=== PATIENT | female | born 2000 | race Caucasian/White ===

== ENCOUNTER 2022-09-02 10:31 | Emergency (ER) | payer BC, SELFPAY ==
--- NOTE | ~2022-09-02 | US_ITS ---
EXAMINATION: US pelvic complete DATE: 09/02/2022 15:24 INDICATION: RLQ pain, r/o ovarian torsion/cyst TECHNIQUE: Multiple transabdominal sonographic images of the pelvis were obtained. Patient declined t ransvaginal examination. COMPARISON: CT abdomen pelvis, same date FINDINGS: Uterus: 6.4 x 2.5 x 5.1 cm. IUD, in good position. Endometrial complex measures 3 mm. Right Ovary: 2.8 x 2.4 x 2.0 cm. Vascular flow is present. Left Ovary: 3.2 x 2.2 x 2.0 cm. Vascular flow is present. There is no free fluid in the pelvis. IMPRESSION: IUD, in good position. Otherwise normal pelvic sonogram findings. Reviewed, dictated and finalized at location K. N SECRETARY
--- NOTE | ~2022-09-02 | CT_ITS ---
EXAMINATION: CT abdomen pelvis w con DATE: 09/02/2022 14:19 INDICATION: Right lower quadrant pain TECHNIQUE: Computed tomography (CT) of the abdomen and pelvis was performed with 99 cc Omnipaque 350 intravenous contrast. The dose-length product was 200.99 mGy-cm. Automated exposure control and itera tive reconstruction technique were employed. COMPARISON: None. FINDINGS: Lung bases are unremarkable. Heart size normal. There are breast implants. No significant p leural or pericardial effusion. No significant vascular abnormality. No lymphadenopathy. There is an IUD in the uterus. Small amount of free fluid in the pelvis. Nonobstructive bowel gas pattern. No lymphadenopathy. The liver, spleen, pancreas, adrenal glands and kidneys are unremarkable. Gallbladder is present. The re is abnormal mural thickening of the transverse and proximal descending colon, consistent with coli tis. No evidence for perforation. No free air. No acute osseous abnormality. IMPRESSION: 1. Abnormal mural thickening of the transverse and proximal descending colon, compatible with colitis . Reviewed, dictated and finalized at location A. ICAL THERAPIST AIDE IMPRESSION: 1. Abnormal mural thickening of the transverse and proximal descending colon, c ompatible with colitis.
[2022-09-02 10:47] VITALS: BP 122/89; PULSE 101; RESP 18; TEMP 36.7; O2SAT 100
--- NOTE | 2022-09-02 10:57 | PC.NURSE ---
PT UNABLE TO PROVIDE URINE SAMPLE AT THIS TIME
[2022-09-02 11:05] LABS: Basophils Absolute Auto 0.1 K/mm3 (0.0-0.1); Basophils Percent Auto 1.4 % (0.2-1.2); Eosinophils Absolute Auto 0.1 K/mm3 (0-0.3); Eosinophils Percent Auto 1.6 % (0-4.4); Hematocrit 43.8 % (37.0-47.0); Hemoglobin 14.5 g/dL (12.0-15.0); Immature Granulocyte Absolute 0.01 K/mm3 (0.00-0.031); Immature Granulocyte Percent A 0.2 % (0-0.5); Lymphocytes Absolute Auto 2.05 K/mm3 (0.9-3.2); Lymphocytes Percent Auto 39.7 % (18.3-44.2); Mean Corpuscular HGB Conc 33.1 g/dl (32-36); Mean Corpuscular Hemoglobin 29.8 pg (26-34); Mean Corpuscular Volume 90.1 fl (80-100); Mean Platelet Volume 8.8 fl (7.4-10.4); Monocytes Absolute Auto 0.5 K/mm3 (0.1-0.6); Monocytes Percent Auto 8.9 % (2.6-8.5); Neutrophils Absolute Auto 2.5 K/mm3 (1.3-6.7); Neutrophils Percent Auto 48.2 % (45.5-73.1); Platelet Count Result 394 k/mm3 (150-375); Red Blood Count 4.86 M/mm3 (4.2-5.4); Red Cell Distribution Width 13.6 % (11.5-14.5); White Blood Count 5.2 K/mm3 (4.5-10.0)
[2022-09-02 11:18] LABS: Alanine Aminotransferase 22 U/L (6-35); Albumin Level 5.1 g/dL (3.5-5.1); Alkaline Phosphatase 67 U/L (38-126); Anion Gap 10 mmol/L (8-16); Aspartate Amino Transferase 26 U/L (14-36); Bilirubin,Total 0.5 mg/dL (0.2-1.3); Blood Urea Nitrogen 12 mg/dL (7-17); Calcium 8.8 mg/dL (8.4-10.2); Carbon Dioxide 25 mmol/L (22-30); Chloride 104 mmol/L (98-107); Estimated CRCL calculation 68 ml/min; Estimated Glomerular Filt Rate > 60; Glucose 104 mg/dL (65-110); Lipase 45 U/L (23-300); Potassium 3.8 mmol/L (3.4-5.0); Sodium 139 mmol/L (137-145)
--- NOTE | 2022-09-02 11:18 | ED.ABDPAIN ---
HPI - Abdominal Pain General Chief Complaint: Abdominal Pain Stated Complaint: Lower ABD Pain, Diarrhea Time Seen by Provider: 09/02/22 10:43 Source: patient Mode of arrival: ambulatory Limitations: no limitations History of Present Illness HPI narrative: Patient is a 22 y/o female who presents to the ED with c/o right lower quadrant abdominal pain. Patient reports the pain began this morning. It is focal in her right lower quadrant, worse with movement. She has not tried anything for the pain. She also reports having nausea, diarrhea, and a decreased appetite over the last few days. She denies any fever, chills, vomiting, rectal bleeding, melena, urinary symptoms, cough or cold symptoms. Related Data Home Medications Medication Instructions Recorded Confirmed desvenlafaxine succinate 50 mg 50 mg PO DAILY 09/02/22 tablet,extended release 24 hr (Pristiq) dextroamphetamine-amphetamine ER 20 mg PO DAILY 09/02/22 20 mg 24hr capsule,extend release (Adderall XR) lamotrigine 200 mg tablet 200 mg PO DAILY 09/02/22 (Lamictal) quetiapine 50 mg tablet (Seroquel) 50 mg PO HS 09/02/22 Allergies Allergy/AdvReac Type Severity Reaction Status Date / Time No Known Allergies Allergy Verified 09/02/22 10:55 Review of Systems Review of Systems: CONSTITUTIONAL: Denies fever, chills, or sweats. ENT: Denies rhinorrhea, congestion, sore throat. CARDIOVASCULAR: Denies chest pain. RESPIRATORY: Denies dyspnea. GASTROINTESTINAL: See HPI. GENITOURINARY: Denies dysuria or hematuria. All systems reviewed & are unremarkable except as noted in HPI and below [facility] Past Medical History Medical History (Updated 09/02/22 @ 15:54 by Norma Beltran PA-C) Bipolar disorder Surgical History Surgical History (Updated 09/02/22 @ 14:48 by Norma Beltran PA-C) No pertinent past surgical history Social History Social History (Updated 09/02/22 @ 14:48 by Norma Beltran PA-C) Smoking status: Current every day smoker Exam Narrative: GENERAL: Uncomfortable appearing, thin, non-toxic, in no acute distress. HEAD: Normocephalic, atraumatic. NECK: Supple. No adenopathy, no masses. RESPIRATORY: Airway patent, respirations nonlabored. Clear to auscultation bilaterally, no rales, rhonchi, wheezing. CARDIOVASCULAR: Tachycardic with regular rhythm without murmurs, rubs, or gallops. Peripheral pulses 2+ and equal bilaterally. ABDOMINAL: Soft, tenderness throughout right lower abdomen, suprapubic region. No rebound tenderness. Nondistended, no hepatosplenomegaly. Normoactive BS. MUSCULOSKELETAL: Moves all extremities. Strength/ROM intact without gross deformities. SKIN: Warm, dry, normal color. No rashes. NEURO: A&O X3. Speech clear. Cranial nerves II-XII grossly intact. Steady gait. No ataxic movements. PSYCHIATRIC: Anxious, tearful. Normal interaction. Course Vital Signs Vital signs: Vital Signs Temperature 98.1 F 09/02/22 10:47 Pulse Rate 101 H 09/02/22 10:47 Respiratory Rate 18 09/02/22 10:47 Blood Pressure 122/89 09/02/22 10:47 Pulse Oximetry 100 09/02/22 10:47 Oxygen Delivery Room Air 09/02/22 10:47 Temperature 98.1 F 09/02/22 10:47 Pulse Rate 114 H 09/02/22 15:29 Respiratory Rate 18 09/02/22 15:29 Blood Pressure 117/71 09/02/22 15:29 Pulse Oximetry 99 09/02/22 15:29 Oxygen Delivery Room Air 09/02/22 10:47 MDM - Abdominal Pain MDM Narrative Medical decision making narrative: Patient presented to ED with 1 day history of RLQ abdominal pain, nausea, diarrhea. Patient anxious, tachycardic, tearful upon arrival. Focal RLQ tenderness on exam. Basic labs obtained and unremarkable. No leukocytosis. No significant electrolyte abnormalities. Stable kidney function. UA with some blood, but no signs of infection. Urine preg negative. CT scan of abdomen pelvis obtained showing findings consistent with colitis. Discussed lab and imaging findings with patient.
[2022-09-02] MEDS: ONDANSETRON INJ 4 MG/2 ML VIAL IV PUSH (11:53)
[2022-09-02] MEDS: SODIUM CHLORIDE 0.9% IV 1,000 ML 999 ML IV CONT (11:53)
[2022-09-02] MEDS: MORPHINE SULFATE (*CRX) 2 MG/ML INJ IV PUSH (11:53)
--- NOTE | 2022-09-02 11:57 | PC.NURSE ---
Pt attempted to provide urine sample and was unsuccessfull
[2022-09-02 13:18] LABS: Appearance Urine Slightly Cloudy (Clear); Bilirubin Urine 2+ (Negative); Blood Urine 2+ (Negative); Color Urine Amber (Yellow); Glucose Urine UA Negative (Negative); Ketones Urine Negative (Negative); Leukocyte Esterase Ur Negative LEU/UL (Negative); Nitrate Urine Negative (Negative); Protein Urine Trace mg/dL (Negative); Specific Grav Ur >= 1.030 (1.001-1.035); pH Urine 5.5 (5.0-9.0)
[2022-09-02 13:32] LABS: Mucus Urine Heavy /lpf; Squamous Epithelial Cell Urine Occasional /hpf (Few); WBC Urine 0-3 /hpf
[2022-09-02 13:36] LABS: Add Urine Microscopic? YES
[2022-09-02 15:29] VITALS: BP 117/71; PULSE 114; RESP 18; O2SAT 99
--- NOTE | 2022-09-02 15:42 | PC.NURSE ---
Pt states she wants to leave and doesn't want to wait for the results of her ultrasounds. She states anything internal just freaks me out. I was misdiagnosed one time at the ER and i would just rather go to my OBGYN. I was diagnosed with cervical cancer and it was just chlamydia Pt understands the risks of leaving and signed AMA papers.
== END 2022-09-02 15:47 | disposition left against medical advice (07) ==
PROVIDERS: Emergency Provider Physician Assistant
DX: K52.9 Noninfective gastroenteritis and colitis, unspecified (principal); F31.9 Bipolar disorder, unspecified; F17.200 Nicotine dependence, unspecified, uncomplicated; Z97.5 Presence of (intrauterine) contraceptive device
CPT/HCPCS: 36415; 74177; 76856; 80053; 81001; 81025; 83690; 85025; 96361; 96365; 96375; 99284; J0131; J2270; J2405; J7030; Q9967